=== PATIENT | female | born 1985 ===

== ENCOUNTER 2017-06-27 13:16 | Emergency (ER) | payer MEDICAID ==
[~2017-06-27] VITALS: Ht 152.4 cm; Wt 90.7 kg
--- NOTE | 2017-06-27 13:49 | NUR ---
Patient discharged to home in stable conditon. Written and verbal after care instructions given. Patient verbalizes understanding of instructions.pt walks in steady gait.
== END 2017-06-27 13:53 | disposition home or self-care (01) ==
LOC: ER 13:21
DX: M54.30 Sciatica, unspecified side (principal)
CPT/HCPCS: 99281; A4663